=== PATIENT | male | born 1970 | race Caucasian/White ===

== ENCOUNTER 2017-06-29 15:40 | Emergency (ER) | payer SELFPAY ==
[2017-06-29 15:46] VITALS: BMI 45.1
--- NOTE | 2017-06-29 15:53 | DR.CP ---
HPI - Time Seen Time seen: 15:40 - PCP Primary Care Physician: [facility] IN [place] - Complaint Chief Complaint:: PT C/O HAVING CHEST PAIN OFF AND ON FOR THE PAST WEEK , PT WENT TO ER IN [place] [facility] BEFORE LAST AND SAT THERE FOR 6 HOURS AND LEFT PT WAS SEEN IN ER IN [place] THE FOLLOWING THURSDAY LABS, AND EKG WERE DONE AND HE WAS GIVEN ASA, AND COZARR.. Self Treatment fo Chief Complaint: AND HE THINKS HE MAY BE DEHYDRATED - Source History Provided: Patient - Mode of Arrival Mode of Arrival: Ambulatory - Timing Onset of Chief Complaint: 06/15/17 - Location Chest Pain Radiation Location: None - Associated Signs and Symptoms Associated Signs and Symptoms: None PMH - PMH Past Medical History: Yes Past Medical History Comment: LEUKEMIA , RENAL STONES, BACK, NODULES Past Surgical History: No - Family History History of Family Medical Conditions: No - Social History Does patient currently use any type of tobacco product: No Have you used tobacco products in the last 12 months: No Type of Tobacco Use: None Does any household member use tobacco: No Alcohol Use: None Do you use any recreational Drugs:: No Lives With: Family Lives Where: Home - infectious screening In the last 2 months have you had wt loss of >10#?: NO Have you had fever, night sweats or hemotysis?: No Have you traveled outside the country in the last 6 months?: No Isolation: Standard ROS - Review of Systems Eyes: No Symptoms Reported ENTM: No Symptoms Reported Respiratoy: No Symptoms Reported Cardiovascular: No Symptoms Reported Gastrointestinal/Abdominal: No Symptoms Reported Genitourinary: No Symptoms Reported Neurological: No Symptoms Reported Musculoskeletal: No Symptoms Reported Integumentary: No Symptoms Reported Hematologic/Lymphatic: No Symptoms Reported Endocrine: No Symptoms Reported Psychiatric: No Symptoms Reported PE - Vitals Vitals: Temperature 97.4 F Pulse Rate [Left Brachial] 89 Pulse Rate 90 Respiratory Rate 18 Blood Pressure [Left Arm] 162/81 Blood Pressure 141/80 O2 Sat by Pulse Oximetry 97 - General Limitations: No Limitations General Appearance: Alert, In No Apparent Distress - Head Head Exam: Normal Inspection - Eyes Eye exam: Normal Appearance, PERRL, EOMI - Chest Chest Inspection: Normal Inspection - Respiratory Respiratory Exam: Normal Lung Sounds Bilat Respiratory Exam: Bilateral Clear to Auscultation - Cardiovascular Cardiovascular Exam: Regular Rate, Normal Rhythm Pulse: Normal Edema: Normal - Abdominal Exam Abdominal Exam: Normal Inspection, Normal Bowel Sounds Abdominal Tenderness: negative: RUQ, RLQ, LUQ, LLQ, Epigastrium, Suprapubic, Diffuse, Mild, Moderate, Severe, Other - Extremities Extremities Exam: Normal Inspection, Full ROM - Back Back Exam: Normal Inspection - Neurologic Neurological Exam: Alert, Oriented X3, CN II-XII Intact - Psychiatric Psychiatric Exam: Normal Affect - Skin Skin Exam: Warm, Dry, Intact Course - Reevaluation 1st: Unchanged ROR - Labs Reviewed Laboratory Results Reviewed?: Yes (cardiac negative) Result Diagrams: 06/29/17 16:00 06/29/17 16:00 Laboratory: WBC 7.2 X10^3/uL (3.6-10.0) 06/29/17 16:00 RBC 4.63 X10^6/uL (4.7-6.0) L 06/29/17 16:00 Hgb 14.9 g/dL (13.5-18.0) 06/29/17 16:00 Hct 42.9 % (42.0-54.0) 06/29/17 16:00 MCV 92.7 fL (80.0-100.0) 06/29/17 16:00 MCH 32.3 pg (27.0-34.0) 06/29/17 16:00 MCHC 34.9 g/dL (33.0-35.0) 06/29/17 16:00 RDW 13.6 % (11.6-16.5) 06/29/17 16:00 Plt Count 270 X10^3/uL (150.0-450.0) 06/29/17 16:00 MPV 9.6 fL (7.4-11.0) 06/29/17 16:00 Neut % 58.0 % (42.0-75.0) 06/29/17 16:00 Lymph % 26.4 % (21.0-51.0) 06/29/17 16:00 Alfalfa % 9.5 % (0.0-13.0) 06/29/17 16:00 Eos % 5.1 % (0.9-2.9) H 06/29/17 16:00 Baso % 1.0 % (0.2-1.0) 06/29/17 16:00 Neut # 4.2 x10^3/uL (2.2-4.8) 06/29/17 16:00 Lymph # 1.9 X10^3/uL (1.3-2.9) 06/29/17 16:00 Alfalfa # 0.7 x10^3/uL (0.3-0.8) 06/29/17 16:00 Eos # 0.4 x10^3/uL (0.0-0.2) H 06/29/17 16:00 Baso # 0.1 X10^3/uL (0.0-0.1) 06/29/17 16:00 Absolute Nucleated RBC 0.0 /100WBC 06/29/17 16:00 INR Target Range - 06/29/17 16:00 INR 0.95 (0.8-1.3) 06/29/17 16:00 Sodium 138 mmol/L (136-145) 06/29/17 16:00 Corrected Sodium 139 mmol/L (136-145) 06/29/17 16:00 Potassium 4.3 mmol/L (3.5-5.1) 06/29/17 16:00 Chloride 103 mmol/L (98-107) 06/29/17 16:00 Carbon Dioxide 24.8 mmol/L (21-32) 06/29/17 16:00 BUN 26 mg/dL (7-18) H 06/29/17 16:00 Creatinine 2.18 mg/dL (0.70-1.30) H 06/29/17 16:00 Est GFR (MDRD) Af Amer 42 (>60) L 06/29/17 16:00 Est GFR (MDRD) Non-Af 34 (>60) L 06/29/17 16:00 Glucose 147 mg/dL (65-99) H 06/29/17 16:00 Calcium 9.5 mg/dL (8.5-10.1) 06/29/17 16:00 Corrected Calcium TNP 06/29/17 16:00 Magnesium 1.7 mg/dL (1.7-2.9) 06/29/17 16:00 Total Bilirubin 0.80 mg/dL (0.2-1.0) 06/29/17 16:00 AST 31 Units/L (15-37) 06/29/17 16:00 ALT 42 Units/L (12-78) 06/29/17 16:00 Alkaline Phosphatase 102 Units/L (46-116) 06/29/17 16:00 Creatine Kinase 182 Units/L (39-308) 06/29/17 16:00 CK-MB (CK-2) 1.5 ng/mL (0-4.0) 06/29/17 16:00 CK/CKMB % Calc 0.8 % (<4) 06/29/17 16:00 Troponin I < 0.02 ng/mL (0-1.5) 06/29/17 16:00 Total Protein 7.6 g/dL (6.4-8.2) 06/29/17 16:00 Albumin 4.0 g/dL (3.4-5.0) 06/29/17 16:00 Globulin 3.6 g/dL (2.5-4.5) 06/29/17 16:00 Albumin/Globulin Ratio 1.1 Ratio (1.1-2.1) 06/29/17 16:00 - XRAY XRAY Interpreted by: Radiologist (Chest: No CHF, infiltrate, pleural fluid or pneumothorax is seen) - Diagnosis Discharge Problem: Dehydration, mild - Discharge Plan Condition: Stable - Follow ups/Referrals Follow ups/Referrals: NFD,None [Primary Care Provider] - 3 days - Instructions
[2017-06-29 16:10] LABS: BASOPHILS # (AUTO) 0.1 X10^3/uL (0.0-0.1); EOSINOPHILS # (AUTO) 0.4 x10^3/uL (0.0-0.2); EOSINOPHILS % (AUTO) 5.1 % (0.9-2.9); HEMATOCRIT 42.9 % (42.0-54.0); HEMOGLOBIN 14.9 g/dL (13.5-18.0); LYMPHOCYTES # (AUTO) 1.9 X10^3/uL (1.3-2.9); LYMPHOCYTES % (AUTO) 26.4 % (21.0-51.0); MEAN CORPUSCULAR HEMOGLOBIN 32.3 pg (27.0-34.0); MEAN CORPUSCULAR HGB CONC 34.9 g/dL (33.0-35.0); MEAN CORPUSCULAR VOLUME 92.7 fL (80.0-100.0); MEAN PLATELET VOLUME 9.6 fL (7.4-11.0); MONOCYTES # (AUTO) 0.7 x10^3/uL (0.3-0.8); MONOCYTES % (AUTO) 9.5 % (0.0-13.0); NEUTROPHILS # (AUTO) 4.2 x10^3/uL (2.2-4.8); PLATELET COUNT 270 X10^3/uL (150.0-450.0); RED BLOOD COUNT 4.63 X10^6/uL (4.7-6.0); RED CELL DISTRIBUTION WIDTH 13.6 % (11.6-16.5); WHITE BLOOD COUNT 7.2 X10^3/uL (3.6-10.0)
--- NOTE | 2017-06-29 16:23 | RAD ---
HISTORY: Chest pain Study: Single-view chest Comparison: No priors Findings: Cardiac monitoring electrodes are noted on the chest. The trachea is midline. There is cardiomegaly w ith aortic uncoiling and pulmonary vascular congestion. No CHF, infiltrate, pleural fluid or pneumoth orax is seen. Osseous structures are intact. IMPRESSION: Hypertensive configuration with mild pulmonary vascular congestion. No CHF, infiltrate, pleural fluid or pneumothorax is seen. Reported By:
[2017-06-29 16:29] LABS: BLOOD UREA NITROGEN 26 mg/dL (7-18); CARBON DIOXIDE 24.8 mmol/L (21-32); CHLORIDE 103 mmol/L (98-107); CREATININE 2.18 mg/dL (0.70-1.30); SODIUM 138 mmol/L (136-145); eGFR BLACK RACES 42 (>60); eGFR NON BLACK RACES 34 (>60)
[2017-06-29 16:30] LABS: CALCIUM 9.5 mg/dL (8.5-10.1); COR NA(FOR HYPERGLY) 139 mmol/L (136-145); TROPONIN I < 0.02 ng/mL (0-1.5)
[2017-06-29 16:34] LABS: ALANINE AMINOTRANSFERASE 42 Units/L (12-78); ALKALINE PHOSPHATASE 102 Units/L (46-116); ASPARTATE AMINO TRANSFERASE 31 Units/L (15-37); CKMB % 0.8 % (<4); CREATINE KINASE 182 Units/L (39-308); CREATINE KINASE MB 1.5 ng/mL (0-4.0); MAGNESIUM 1.7 mg/dL (1.7-2.9); TOTAL PROTEIN 7.6 g/dL (6.4-8.2)
[2017-06-29] MEDS ORDERED: NS 1000 ML 1,000 ML IV ONE (17:33)
[2017-06-29] MEDS ORDERED: NS 1000 ML 1,000 ML ONE (17:35)
[2017-06-29 17:42] VITALS: BP 162/81
== END 2017-06-29 18:55 | disposition home or self-care (01) ==
LOC: ER 15:50
DX: E86.0 Dehydration (principal)
CPT/HCPCS: 36415; 71010; 80053; 82550; 82553; 83735; 84484; 85025; 85610; 93005; 93010; 96365; 96367; 99283; A4222